=== PATIENT | female | born 1980 | race Caucasian/White ===

== ENCOUNTER → 2016-08-11 | Outpatient (CLI) | payer BC ==
--- NOTE | 2016-08-12 09:19 | EKG REPORT ---
SEVERITY:- ABNORMAL ECG - SINUS RHYTHM PROLONGED QT INTERVAL : Confirmed by: Jeremias Rolle MD 12-Aug-2016 09:18:06
== END ==
LOC: OD 11:51
PROVIDERS: ATTEND Specialist
DX: I10 Essential (primary) hypertension (principal); R01.1 Cardiac murmur, unspecified
CPT/HCPCS: 93005; 93010

== ENCOUNTER → 2016-08-11 | Outpatient (CLI) | payer BC ==
--- NOTE | 2016-08-11 19:25 | XCELERA REPORT ---
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 No LVH and no LV segmental motion abnormality, LVEF is >70%, no LV diastolic dysfunction. No LV segmental disease. AV is normal 3 cusps, no ASand no AR. MV normal. mild MR no LA enlargement. TR is mild < RVSP 32 mm Hg , mild pulm hypertension MMode/2D Measurements \T\ Calculations RVDd: 2.4 cm LVIDd: 4.5 cm FS: 33.4 % Ao root diam: 3.0 cm IVSd: 0.86 cm LVIDs: 3.0 cm EDV(Teich): 90.4 ml LVPWd: 0.86 cmESV(Teich): 34.2 ml Ao root area: 7.2 cm2 EF(Teich): 62.2 % LA dimension: 2.4 cm LVOT diam: 1.7 cm LVOT area: 2.3 cm2 Doppler Measurements \T\ Calculations MV E max johana: MV P1/2t max johana: Ao V2 max: LV V1 max P.8 cm/sec 85.6 cm/sec 326.6 cm/sec 22.7 mmHg MV A max johana: MV P1/2t: 53.1 msec Ao max PG: LV V1 max: 77.1 cm/sec MVA(P1/2t): 4.1 cm2 43.5 mmHg 237.8 cm/sec MV E/A: 1.1 MV dec slope: MORALES(V,D): 1.7 cm2 472.4 cm/sec2 PA V2 max: TR max johana: 128.3 cm/sec 282.2 cm/sec PA max PG: TR max P.8 mmHg 6.6 mmHg Left Ventricle The left ventricle is grossly normal size. There is normal left ventricular wall thickness. An intracavitary gradient is suspected. The left ventricular ejection fraction is normal. Doppler measurements suggest normal left ventricular diastolic function. No regional wall motion abnormalities noted. There is no thrombus. Right Ventricle The right ventricle is normal in size, thickness and function. Atria The right atrium is normal. The left atrial size is normal. The interatrial septum is intact with no evidence for an atrial septal defect. Mitral Valve The mitral valve is normal in structure and function. There is no evidence of mitral valve prolapse. There is no mitral valve stenosis. There is a mild amount of mitral regurgitation. Aortic Valve The aortic valve is normal in structure and functions normally. The aortic valve is trileaflet. The aortic valve opens well. There is no aortic valvular vegetation. There is no aortic valve stenosis. 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 No aortic regurgitation is present. Tricuspid Valve The tricuspid valve is not well visualized secondary to technical limitations. There is a trace or physiologic amount of tricuspid regurgitation. Right ventricular systolic pressure is estimated to be elevated at 30-40mmHg. Pulmonic Valve The pulmonic valve is not well visualized. There is no pulmonic valvular regurgitation. Great Vessels The aortic root is normal size. Effusions Minimal pericardial effusion. I WMSI = 1.00 % Normal = 100 Segments Size X - Cannot 1 - Normal 2 - 3 - Akinetic4 - 1-2 small Interpret Hypokinetic Dyskinetic 3-5 moderate 5 - 6-14 large Aneurysmal 15-16 diffuse : NIKITA DUKE > Jeremias Rolle
== END ==
LOC: SP 10:44
PROVIDERS: ATTEND Specialist
DX: I10 Essential (primary) hypertension (principal); R01.1 Cardiac murmur, unspecified
CPT/HCPCS: 93306

== ENCOUNTER 2020-03-23 15:57 | Emergency (ER) | payer BC ==
--- NOTE | 2020-03-23 16:26 | ER Document Report ---
ED Medical Screen (RME) - General Chief Complaint: High Blood Pressure Stated Complaint: BLOOD PRESSURE PROBLEM Time Seen by Provider: 03/23/20 16:14 Primary Care Provider: NIKITA DUKE MD [Primary Care Provider] - Follow up as needed Mode of Arrival: Ambulatory Information source: Patient Notes: 39-year-old female patient with history of hypertension presenting to the emergency department with complaints of elevated blood pressure today. Patient reports she was seen at her [facility] and they directed her to the emergency department for elevated blood pressure today. Patient does report she has having mild headaches, dizziness and generalized malaise. She states this is normal for her. She states she was off of her blood pressure medications for several months this year and started taking them again about 3 months ago. She does report that her primary care provider added a blood pressure medication about a month ago however she did not pick it up from the pharmacy. She did report that she had a an episode of chest pain yesterday that was self-limiting. She has had no chest pain or shortness of breath today. Heart sounds S1-S2 present, no ectopy noted. Lung sounds clear and equal bilaterally. I have greeted and performed a rapid initial assessment of this patient. A comprehensive ED assessment and evaluation of the patient, analysis of test results and completion of the medical decision making process will be conducted by additional ED providers. I have specifically instructed the patient or family members with the patient to immediately return to any nursing staff should anything change in the patient's condition or with their chief complaint. TRAVEL OUTSIDE OF THE [place] IN LAST 30 DAYS: No - Related Data Allergies/Adverse Reactions: iodine [Iodine] Allergy (Verified 02/29/16 15:49) Home Medications: lisinopril, lexapro Past Medical History - Social History Frequency of alcohol use: None Drug Abuse: None - Past Medical History Cardiac Medical History: Reports: Hx Hypertension - off bp med for past year Neurological Medical History: Reports: Hx Seizures - hx Past Surgical History: Reports: Hx Cholecystectomy - Immunizations Hx Diphtheria, Pertussis, Tetanus Vaccination: Yes Physical Exam - Vital signs Vitals: Temp Pulse Resp BP Pulse Ox 98.3 F 74 16 202/105 H 99 03/23/20 16:09 03/23/20 16:09 03/23/20 16:09 03/23/20 16:09 03/23/20 16:09 Course - Vital Signs Vital signs: Temp Pulse Resp BP Pulse Ox 98.3 F 74 16 192/104 H 99 03/23/20 16:09 03/23/20 16:09 03/23/20 16:09 03/23/20 16:13 03/23/20 16:09 Doctor's Discharge - Discharge Referrals: NIKITA DUKE MD [Primary Care Provider] - Follow up as needed
[2020-03-23 17:09] LABS: APPEARANCE,URINE CLEAR; BILIRUBIN,URINE NEGATIVE (NEGATIVE); COLOR,URINE STRAW; GLUCOSE, URINE NEGATIVE (NEGATIVE); KETONES,URINE NEGATIVE (NEGATIVE); LEUKOCYTE ESTERASE,URINE NEGATIVE (NEGATIVE); NITRITE,URINE NEGATIVE (NEGATIVE); PROTEIN,URINE NEGATIVE (NEGATIVE); URINE SPECIFIC GRAVITY 1.004; UROBILINOGEN,URINE NEGATIVE mg/dL (<2.0)
[2020-03-23 17:18] LABS: ABSOLUTE BASOPHILS # (AUTO) 0.1 10^3/uL (0.0-0.2); ABSOLUTE EOSINOPHILS # (AUTO) 0.1 10^3/uL (0.0-0.6); ABSOLUTE LYMPHOCYTES (AUTO) 2.5 10^3/uL (0.5-4.7); ABSOLUTE MONOCYTES (AUTO) 0.5 10^3/uL (0.1-1.4); ABSOLUTE NEUT (AUTO) 9.3 10^3/uL (1.7-8.2); BASOPHILS % (AUTO) 0.8 % (0-2); EOSINOPHILS % (AUTO) 0.9 % (0-6); HEMATOCRIT 44.1 % (36.0-47.0); LYMPHOCYTES % (AUTO) 19.6 % (13-45); MEAN CORPUSCULAR HEMOGLOBIN 31.6 pg (27.0-33.4); MEAN CORPUSCULAR HGB CONC 34.1 g/dL (32.0-36.0); MEAN CORPUSCULAR VOLUME 93 fl (80-97); MONOCYTES % (AUTO) 4.3 % (3-13); PLATELET COUNT 331 10^3/uL (150-450); RED BLOOD COUNT 4.76 10^6/uL (3.72-5.28); RED CELL DISTRIBUTION WIDTH 15.3 % (11.5-14.0); SEGMENTED NEUTROPHILS % (AUTO) 74.4 % (42-78); TOTAL CELLS COUNTED % (AUTO) 100 %; WHITE BLOOD COUNT 12.5 10^3/uL (4.0-10.5)
[2020-03-23 17:24] LABS: ALBUMIN 4.6 g/dL (3.5-5.0); ALKALINE PHOSPHATASE 60 U/L (38-126); ANION GAP 10 (5-19); ASPARTATE AMINO TRANSFERASE 21 U/L (14-36); BILIRUBIN,DIRECT 0.3 mg/dL (0.0-0.4); BILIRUBIN,TOTAL 0.5 mg/dL (0.2-1.3); BLOOD UREA NITROGEN 7 mg/dL (7-20); CALCIUM 9.5 mg/dL (8.4-10.2); CARBON DIOXIDE 28 mmol/L (22-30); CHLORIDE 101 mmol/L (98-107); GLUCOSE 93 mg/dL (75-110); POTASSIUM 3.6 mmol/L (3.6-5.0)
[2020-03-23 19:39] VITALS: BP 201/97
--- NOTE | 2020-03-23 19:53 | EKG REPORT ---
SEVERITY:- BORDERLINE ECG - SINUS RHYTHM PROBABLE LEFT ATRIAL ABNORMALITY : Confirmed by: Nupur Urbina 23-Mar-2020 19:53:13
--- NOTE | 2020-03-23 20:13 | ER Document Report ---
HPI - HPI Time Seen by Provider: 03/23/20 16:14 Pain Level: 0 Notes: 39-year-old female patient with history of hypertension presenting to the emergency department with complaints of elevated blood pressure today. Patient reports she was seen at her [facility] and they directed her to the emergency department for elevated blood pressure today. Patient does report she has having mild headaches, dizziness and generalized malaise. She states this is normal for her. She states she was off of her blood pressure medications for several months this year and started taking them again about 3 months ago. She does report that her primary care provider added a blood pressure medication about a month ago however she did not pick it up from the pharmacy. She did report that she had a an episode of chest pain yesterday that was self-limiting. She has had no chest pain or shortness of breath today. - ROS Systems Reviewed and Negative: Yes All other systems reviewed and negative - see HPI - CONSTITUTIONAL Constitutional: DENIES: Fever, Chills - NEURO Neurology: REPORTS: Headache - REPRODUCTIVE Reproductive: DENIES: : Past Medical History - General Information source: Patient - Social History Smoking Status: Current Every Day Smoker Frequency of alcohol use: None Drug Abuse: None Family History: CAD, Hypertension - Past Medical History Cardiac Medical History: Reports: Hx Hypertension - off bp med for past year Neurological Medical History: Reports: Hx Seizures - hx Past Surgical History: Reports: Hx Cholecystectomy - Immunizations Hx Diphtheria, Pertussis, Tetanus Vaccination: Yes Vertical Provider Document - CONSTITUTIONAL Notes: PHYSICAL EXAMINATION: GENERAL: Well-appearing, well-nourished and in no acute distress. HEAD: Atraumatic, normocephalic. EYES: Pupils equal round extraocular movements intact, conjunctiva are normal. ENT: Nares patent NECK: Normal range of motion LUNGS: No respiratory distress Musculoskeletal: Normal range of motion NEUROLOGICAL: Normal speech, normal gait. PSYCH: Normal mood, normal affect. SKIN: Warm, Dry, normal turgor, no rashes or lesions noted. - INFECTION CONTROL TRAVEL OUTSIDE OF THE [place] IN LAST 30 DAYS: No Course - Re-evaluation Re-evalutation: Patient appears well, nontoxic, work-up today has been reassuring. Patient will follow-up with her primary care provider. The patient's emergency department workup and current diagnosis were explained to the patient and or family. Follow-up instructions were provided. Medications if prescribed were discussed. Instructions for when to return to the emergency department including specific worrisome symptoms were discussed with the patient and/or family. - Vital Signs Vital signs: Temp Pulse Resp BP Pulse Ox 98.5 F 65 16 201/97 H 99 03/23/20 19:38 03/23/20 19:38 03/23/20 19:38 03/23/20 19:38 03/23/20 19:38 - Laboratory Result Diagrams: 03/23/20 12:35 03/23/20 12:35 Laboratory results interpreted by me: 03/23/20 12:35 WBC 12.5 H RDW 15.3 H Absolute Neuts (auto) 9.3 H - EKG Interpretation by Me EKG shows normal: Sinus rhythm - Rate of 65, QTc 445, normal axis, normal intervals, no ST segment elevations or depressions to suggest ischemia. No EKG to compare to. Discharge - Discharge Clinical Impression: Hypertension Qualifiers: Hypertension type: unspecified Qualified Code(s): I10 - Essential (primary) hypertension Condition: Stable Disposition: HOME, SELF-CARE Additional Instructions: Please take medication as prescribed. Follow-up with your primary care doctor. Take your blood pressure twice a day and keep a log of it. Take the log to your next appointment. Return if worsening. Prescriptions: Amlodipine Besylate [Norvasc 2.5 mg Tablet] 2.5 mg PO DAILY #30 tablet Referrals: NIKITA DUKE MD [ACTIVE STAFF] - Follow up as needed
== END 2020-03-23 20:18 | disposition home or self-care (01) ==
LOC: ER 15:57
DX: I10 Essential (primary) hypertension (principal); T50.906A Underdosing of unspecified drugs, medicaments and biological substances, initial encounter; Z91.128 Patient's intentional underdosing of medication regimen for other reason; Z91.14 Patient's other noncompliance with medication regimen; R42 Dizziness and giddiness; R51.9 Headache, unspecified; R53.81 Other malaise; F17.200 Nicotine dependence, unspecified, uncomplicated; Z79.899 Other long term (current) drug therapy
CPT/HCPCS: 36415; 80053; 81001; 85025; 93005; 93010; 99284